=== PATIENT | female | born 1995 | race Caucasian/White ===

== ENCOUNTER 2022-08-11 12:30 | Inpatient (IN) | payer BC ==
[2022-08-05 17:44] VITALS: BMI 45.4
[2022-08-20] MEDS ORDERED: BUPIVACAINE HCL/PF 0.25% (2.5MG/ML) 10 ML VIAL ONE (10:30)
[2022-08-20] MEDS ORDERED: PROPOFOL 40 ML ONE (10:42)
[2022-08-20] MEDS ORDERED: SUCCINYLCHOLINE CHLORIDE 200 MG/10 ML SYRINGE ONE (10:43)
[2022-08-20] MEDS ORDERED: MIDAZOLAM HCL 2 MG/2 ML SINGLE DOSE VIAL ONE (10:43)
[2022-08-20] MEDS ORDERED: LIDOCAINE HCL/PF 2% SDV 5ML VIAL ONE (10:54)
[2022-08-20] MEDS ORDERED: ceFAZolin SODIUM 1 GM VIAL ONE (11:04)
[2022-08-20] MEDS ORDERED: ROCURONIUM BROMIDE 50 MG/5 ML SYRINGE ONE (11:04)
[2022-08-20] MEDS ORDERED: ONDANSETRON 4 MG/2 ML VIAL ONE ×3 (11:29→13:46)
[2022-08-20] MEDS ORDERED: DEXAMETHASONE SOD PHOSPHATE 4 MG/1 ML VIAL ONE (11:29)
[2022-08-20] MEDS ORDERED: PROMETHAZINE HCL 25 MG/1 ML VIAL IVPUSH PRN (12:05)
[2022-08-20] MEDS ORDERED: ONDANSETRON 4 MG/2 ML VIAL IVPUSH PRN (12:05)
[2022-08-20] MEDS ORDERED: HYDROmorphone HCl 2 MG/ML VIAL IVPUSH PRN (12:05)
[2022-08-20] MEDS ORDERED: LACTATED RINGERS SOLUTION 1,000 ML IV SCH (12:15)
[2022-08-20] MEDS ORDERED: SODIUM CHLORIDE 1,000 ML IV SCH (13:00)
[2022-08-20] MEDS ORDERED: HYDROmorphone HCL/PF 1 MG/ML VIAL ONE (13:22)
[2022-08-20 13:46] LABS: HEMATOCRIT 42.3 % (32.4-45.2); HEMOGLOBIN 14.5 G/dL (10.7-15.3); MCH 33.1 pg (25.7-33.7); MCHC 34.2 g/dl (32.0-36.0); MEAN CELL VOLUME 96.8 fl (80-96); MEAN PLT VOLUME 6.8 fl (7.5-11.1); PLATELET COUNT 274.9 10^3/uL (134-434); RBC 4.37 10^6/uL (3.60-5.2); RDW 13.5 % (11.6-15.6); WHITE BLOOD COUNT 14.9 10^3/uL (4.0-10.8)
[2022-08-20] MEDS ORDERED: PROMETHAZINE HCL 25 MG/1 ML VIAL ONE (13:51)
[2022-08-20 13:53] LABS: ALBUMIN 3.8 g/dl (3.4-5.0); BILIRUBIN,TOTAL 0.7 mg/dl (0.2-1); CALCIUM 8.6 mg/dl (8.5-10); CREATININE 0.7 mg/dl (0.55-1.3)
[2022-08-20] MEDS ORDERED: HALOPERIDOL LACTATE 5 MG/ML IM ONE (13:58)
[2022-08-20] MEDS: HYDROmorphone HCl 2 MG/ML VIAL IVPB PRN ×2 (17:52→21:46)
[2022-08-20] MEDS: FAMOTIDINE 20 MG/50 ML IVPB 20 MG/50 ML MG IVPB SCH (21:33)
[2022-08-20] MEDS: METOCLOPRAMIDE HCL INJECTION 10 MG/2 ML VIAL IVPUSH SCH (21:52)
[2022-08-20] MEDS: ONDANSETRON 4 MG/2 ML VIAL IVPUSH PRN (22:00)
[2022-08-21] MEDS: HYDROmorphone HCl 2 MG/ML VIAL IVPB PRN ×4 (01:50→15:26)
[2022-08-21] MEDS: METOCLOPRAMIDE HCL INJECTION 10 MG/2 ML VIAL IVPUSH SCH (05:45)
[2022-08-21] MEDS: FAMOTIDINE 20 MG/50 ML IVPB 20 MG/50 ML MG IVPB SCH (10:30)
[2022-08-21] MEDS: ONDANSETRON 4 MG/2 ML VIAL IVPUSH PRN (10:31)
[2022-08-21 12:26] LABS: HEMATOCRIT 40.6 % (32.4-45.2); HEMOGLOBIN 13.7 G/dL (10.7-15.3); MCH 33.6 pg (25.7-33.7); MCHC 33.7 g/dl (32.0-36.0); MEAN CELL VOLUME 99.5 fl (80-96); MEAN PLT VOLUME 7.5 fl (7.5-11.1); PLATELET COUNT 286.3 10^3/uL (134-434); RBC 4.08 10^6/uL (3.60-5.2); RDW 13.2 % (11.6-15.6); WHITE BLOOD COUNT 17.5 10^3/uL (4.0-10.8)
[2022-08-21 12:33] LABS: ALBUMIN 3.4 g/dl (3.4-5.0); BILIRUBIN,TOTAL 1.4 mg/dl (0.2-1); CALCIUM 8.2 mg/dl (8.5-10); CREATININE 0.6 mg/dl (0.55-1.3); TOT PROT 6.3 g/dl (6.4-8.2)
[2022-08-21] MEDS ORDERED: SIMETHICONE 80 MG TAB.CHEW (FP) PO PRN (14:10)
[2022-08-21 14:15] VITALS: RESP 19; TEMP 98.6
[2022-08-21] MEDS ORDERED: ACETAMINOPHEN 325 MG TABLET (FP) PO PRN (15:55)
[2022-08-21] MEDS ORDERED: oxyCODONE HCL 5 MG TABLET PO PRN (15:55)
[2022-08-21] MEDS ORDERED: SODIUM CHLORIDE 1,000 ML IV SCH (16:00)
[2022-08-21 17:28] VITALS: BP 134/86; PULSE 89
== END 2022-08-21 17:38 | disposition home or self-care (01) | DRG 621 ==
LOC: FM/S 08-20 08:51
PROVIDERS: ADMIT Surgery; ATTEND Surgery
PROC: 0FB23ZX Excision of Left Lobe Liver, Percutaneous Approach, Diagnostic (ICD-10-PCS; 2022-08-20)
PROC: 0DB64Z3 Excision of Stomach, Percutaneous Endoscopic Approach, Vertical (ICD-10-PCS; principal; 2022-08-20 11:21)
DX: E66.01 Morbid (severe) obesity due to excess calories (principal); Z68.42 Body mass index [BMI] 45.0-49.9, adult; R16.0 Hepatomegaly, not elsewhere classified
CPT/HCPCS: 36415; 74240-TC-FY; 80053; 81025; 85027; 86850; 86900; 86901; 88307-TC; 94760; Q9967